=== PATIENT | female | born 1995 | race African-American/Black ===

== ENCOUNTER 2022-04-17 13:00 | Emergency (ER) | payer MEDICAID, SELFPAY ==
[2022-04-17 13:01] VITALS: BP 121/101; PULSE 80; RESP 18; TEMP 36.9; O2SAT 100; BMI 21.4
--- NOTE | 2022-04-17 13:08 | XR_ITS ---
FINAL REPORT CLINICAL HISTORY: PAIN in back, and hurts to take in a deep breath FINDINGS: Two views of the chest were obtained. The heart size and pulmonary vascularity are within normal limits. The mediastinum is normal. No acute pulmonary abnormality is identified. There is no pneumothorax. The bony thorax is intact. IMPRESSION: No active cardiopulmonary disease. Reviewed, Interpreted and Dictated by Salinas Tapia III, MD Transcribed by Gelacio Murillo Authenticated and [facility]
--- NOTE | 2022-04-17 13:24 | HMH.EDGENADL ---
Discharge Plan Disposition Patient Disposition: Home, Self-Care Condition: Good Prescriptions Prescriptions: New ibuprofen 600 mg tablet 600 mg PO Q6H PRN (Reason: moderate pain ) Qty: 20 0RF No Action prenat.vits,tracey,asc-csxw-ezftm tablet 1 tab PO QHS Qty: 30 3RF ferrous sulfate 325 mg (65 mg iron) tablet,delayed release (DR/EC) 325 mg PO DAILY Qty: 30 8RF Rx Instructions: do not break, crush, or chew tablet(s) Activity Restrictions/Add. Instructions Additional Instructions/Restrictions: Ibuprofen for pain. Heating pad 20 minutes 4 times a day. Follow-up with primary care provider next week if not improved. Clinical Impressions Clinical Impression: Musculoskeletal chest pain Discharge ED Provider: Rafat Paul General Adult HPI General Chief complaint: Back Pain/Injury Stated complaint: left flank pain Time Seen by Provider: 04/17/22 13:24 Mode of Arrival: EMS Source of Information: Patient Limitations: No Limitations Description of Symptoms (Recalled from ER Triage Doc. by RN): PT TO ED VIA EMS FOR LEFT SIDED BACK PAIN. INCREASED PAIN WITH COUGHING OR DEEP BREATHING. NO INJURY. DENIES CHEST PAIN OR SOA History of Present Illness HPI narrative: Brought in by ambulance. Complains of left sided thoracic pain laterally and posteriorly that started yesterday while walking, trouble breathing. Pain hurts when she breathes, coughs, or yawns and hurts to touch. No injury or unusual activity. States it is hard to get a deep breath because of the pain. No recent cough or fever. No leg pain or swelling. No previous similar pain. No rash. No hemoptysis. No recent travel, hospitalizations, or surgeries. She took Tylenol for the pain prior to arrival. She is a smoker. Occasionally drinks alcohol. No drug use. She is on iron and control pills. Related Data Previous Rx's Medication Instructions Recorded ferrous sulfate 325 mg (65 mg 325 mg PO DAILY #30 tabs 10/21/17 iron) tablet,delayed release prenat.vits,tracey,wdp-vleh-whxvu 1 tab PO QHS #30 tabs 10/21/17 ibuprofen 600 mg tablet 600 mg PO Q6H PRN moderate pain 04/17/22 #20 tabs Allergies Allergy/AdvReac Type Severity Reaction Status Date / Time mushroom [MUSHROOM] Allergy Unknown SWELLING Verified 11/10/17 13:48 onion [ONION] Allergy Unknown Verified 11/10/17 13:48 [facility] Medical History (Updated 04/17/22 @ 14:52 by Rafat Paul MD) No significant past medical history Surgical History (Updated 04/17/22 @ 13:11 by Chelle Lockett RN) No significant past surgical history Family History (Updated 04/17/22 @ 13:11 by Chelle Lockett RN) Other No significant family history Social History (Updated 04/17/22 @ 13:12 by Chelle Lockett RN) Smoking Status: Current every day smoker tobacco type: cigarettes packs per day: 1 alcohol intake: current substance use type: denies use current occupational status: employed Travel in the last 8 weeks: None ROS Obtained: Yes Systems reviewed as appropriate & no additional complaints except as documented Constitutional Constitutional: Denies fever(s) Cardiovascular Cardiovascular: Reports chest pain, Reports dyspnea and Denies edema Respiratory Respiratory: Denies cough, Reports dyspnea, Denies hemoptysis, Reports pain on inspiration and Reports pain with cough Gastrointestinal Gastrointestingal: Denies abdominal pain, nausea or vomiting Integumentary/Breasts Skin/Breast: Denies rash Physical Exam General General appearance: alert and in no apparent distress Head Head exam: atraumatic and normocephalic Eye Eye exam: Present normal appearance and EOMI ENT ENT exam: Present mucous membranes moist Neck Neck exam: Present normal inspection and trachea midline Chest Chest inspection: Present normal inspection, symmetric chest wall rise and tenderness; Absent rash Respiratory Respiratory exam: Present normal lung sounds bilaterally; Ab
[2022-04-17 13:30] VITALS: BP 124/81; PULSE 69; O2SAT 100
[2022-04-17 14:00] VITALS: PULSE 67; O2SAT 100
--- NOTE | 2022-04-17 14:10 | ECG_ITS ---
APPROVED REPORT Exam: Resting ECG HR:56 bpm ECG Measurements Heart Rate 56 AXES NV 156 P 46 QRSd 98 QRS 54 QT 429 T 48 QTc 421 Conclusion SINUS BRADYCARDIA WITH SINUS ARRHYTHMIA BORDERLINE ECG UNCONFIRMED REPORT Electronically signed by : Randy Lin MD 04/18/2022 16:26:15
[2022-04-17 14:16] LABS: Basophils % 0.5 % (0.1-2.0); Eosinophils % 0.8 % (0.1-12.0); Hematocrit 37.8 % (37.0-47.0); Hemoglobin 11.9 g/dL (12.2-16.2); Lymphocytes # 1.4 K/mm3 (0.7-4.5); Lymphocytes % 23.4 % (10-50); Mean Corpuscular HGB Conc 31.5 g/dL (31.8-35.4); Mean Corpuscular Hemoglobin 27.5 pg (27.0-31.2); Mean Corpuscular Volume 87.3 fl (81-99); Mean Platelet Volume 7.6 fl (7.4-10.4); Monocytes # 0.4 K/mm3 (0.1-1.0); Monocytes % 6.4 % (1.7-9.3); Neutrophils % 68.9 % (37.0-80.0); Platelet Count 208 K/mm3 (142-424); Red Blood Count 4.32 M/mm3 (4.20-5.40); Red Cell Distribution Width 13.5 % (11.5-17.5); White Blood Count 5.8 K/mm3 (4.8-10.8)
[2022-04-17 14:20] LABS: Anion Gap 7.8 mEq/L (5-15); Blood Urea Nitrogen 9 mg/dl (7-17); Carbon Dioxide 27 mmol/L (22.0-30.0); Chloride 105 mmol/L (98-107); Creatinine Clearance Estimated 107 mL/min (50-200); Estimated Glomerular Filt Rate 100 ml/min (>60); GFR (African American) 121 ML/MIN (>60); Glucose 93 mg/dl (74-100); Potassium 3.8 mmoL/L (3.5-5.1); Sodium 136 mmol/L (136-145)
[2022-04-17 14:24] LABS: D-Dimer 0.42 ug/mL (0.0-0.5)
[2022-04-17 14:30] VITALS: BP 121/78; PULSE 61; RESP 16; O2SAT 100
[2022-04-17 14:38] LABS: Troponin I < 0.01 ng/ml (0.00-0.034)
[2022-04-17 15:01] VITALS: BP 121/78; PULSE 61; RESP 16; TEMP 36.9; O2SAT 100
== END 2022-04-17 15:01 | disposition home or self-care (01) ==
PROVIDERS: Emergency Provider Emergency Medicine
DX: R10.32 Left lower quadrant pain; M54.6 Pain in thoracic spine; R00.1 Bradycardia, unspecified; R05.9 Cough, unspecified; F17.210 Nicotine dependence, cigarettes, uncomplicated; Z79.1 Long term (current) use of non-steroidal anti-inflammatories (NSAID); Z79.899 Other long term (current) drug therapy; Z91.018 Allergy to other foods
CPT/HCPCS: 71046; 80048; 84484; 85025; 85378; 93005; 99285

== ENCOUNTER 2023-09-22 08:04 | Emergency (ER) | payer MEDICAID, SELFPAY ==
[2023-09-22 08:28] VITALS: BP 149/85; PULSE 86; RESP 18; TEMP 36.9; O2SAT 98; BMI 23.9
--- NOTE | 2023-09-22 08:31 | EXP.UTC ---
Discharge Plan Disposition Patient Disposition: Home, Self-Care Condition: Good Prescriptions Prescriptions: New ondansetron 4 mg tablet,disintegrating 4 mg PO Q8H PRN (Reason: nausea and vomiting) Qty: 10 0RF amoxicillin-pot clavulanate 875-125 mg Tablet 1 tab PO Q12H Qty: 20 0RF No Action prenat.vits,tracey,sqo-cpco-tfpmm tablet 1 tab PO QHS Qty: 30 3RF ferrous sulfate 325 mg (65 mg iron) tablet,delayed release (DR/EC) 325 mg PO DAILY Qty: 30 8RF Rx Instructions: do not break, crush, or chew tablet(s) ibuprofen 600 mg tablet 600 mg PO Q6H PRN (Reason: moderate pain ) Qty: 20 0RF Referrals Follow up/Referrals: Provider,Referral, MD [Primary Care Provider] - See instructions Activity Restrictions/Add. Instructions Additional Instructions/Restrictions: Keep appointment with Dentist next week as scheduled Rinse mouth with warm salt water Take medication as prescribed Follow up as directed Over the counter Motrin and/or Tylenol for pain and fever Clinical Impressions Clinical Impression: Dental abscess Stand Alone Forms Stand Alone Forms: Work/School Release Instructions Patient Instructions: DI for Tooth Abscess, Tooth Abscess Discharge ED Provider: Yeni Anne [facility] [place] H[place] General Stated complaint: Vomiting, metallic taste, fever Mode of Arrival: Ambulatory Source of Information: Patient Limitations: No Limitations Time Seen by Provider: 09/22/23 08:31 Description of Symptoms (Recalled from Triage Doc. by RN): Patient reports abcess tooth on the top right causing nausea and vomiting x 2 days. HEENT Symptoms (Recalled from RN notes): No Resp Symptoms (Recalled from RN notes): No Skin Symptoms (Recalled from RN notes): No MS Symptoms (Recalled from RN notes): No Functional Status (Recalled from RN notes): wnl History of Present Illness Provider Complaint: Patient states that she has several bad teeth on top and they have been hurting and now she is starting to have some swelling in her gums and makes her have a bad taste in her mouth and makes her sick at her stomach and she will vomit States that she made appointment next week with the dentist but they told her she may need antibiotics so she came in today to get checked Related Data Previous Rx's Medication Instructions Recorded ferrous sulfate 325 mg (65 mg 325 mg PO DAILY #30 tabs 10/21/17 iron) tablet,delayed release prenat.vits,tracey,rqv-cwqr-xfnao 1 tab PO QHS #30 tabs 10/21/17 ibuprofen 600 mg tablet 600 mg PO Q6H PRN moderate pain 04/17/22 #20 tabs amoxicillin 875 mg-potassium 1 tab PO Q12H #20 tabs 09/22/23 clavulanate 125 mg tablet ondansetron 4 mg disintegrating 4 mg PO Q8H PRN nausea and 09/22/23 tablet vomiting #10 tabs Allergies Allergy/AdvReac Type Severity Reaction Status Date / Time mushroom [MUSHROOM] Allergy Unknown SWELLING Verified 11/10/17 13:48 onion [ONION] Allergy Unknown Verified 11/10/17 13:48 Worker's Comp Is this a Worker's Comp case?: No [facility] Disclaimer: The information contained in this section may have been updated after the patient was seen, as this information can be updated by other users. Medical History (Updated 09/22/23 @ 08:37 by Yeni Anne APRN) No significant past medical history Surgical History (Updated 04/17/22 @ 13:11 by Chelle Lockett RN) No significant past surgical history Family History (Updated 04/17/22 @ 13:11 by Chelle Lockett RN) Other No significant family history Social History (Updated 04/17/22 @ 13:12 by Chelle Lockett RN) Smoking Status: Current every day smoker tobacco type: cigarettes packs per day: 1 alcohol intake: current substance use type: denies use current occupational status: employed Travel in the last 8 weeks: None ROS Obtained: Yes All systems reviewed & no additional complaints except as documented and Yes Systems reviewed as appropriate & no additional complaints except as documented Constitutional Constitutional: Reports system reviewed and no additional complaints, except as documented and Reports as per HPI ENT Ears, Nose, Mouth, and Throat: Reports system reviewed and no additional complaints, except as documented, Reports as per HPI and Reports dental pain Cardiovascular Cardiovascular: Reports system reviewed and no additional complaints, except as documented and Reports as per HPI Respiratory Respiratory: Reports system reviewed and no additional complaints, except as documented and Reports as per HPI Gastrointestinal Gastrointestingal: Reports system reviewed and no additional complaints, except as documented, as per HPI, nausea and vomiting Genitourinary Female Genitourinary: Reports system reviewed and no additional complaints, except as documented and Reports as per HPI Physical Exam General General appearance: alert and in no apparent distress ENT ENT exam: Present mucous membranes moist Expanded ENT Exam Teeth exam: Present dental caries, fractured tooth #, gingival swelling and other (multiple broken and decaying teeth noted on right upper gumline) Respiratory Respiratory exam: Present normal lung sounds bilaterally; Absent respiratory distress or wheezes Cardiovascular Cardiovascular exam: Present regular rate, normal rhythm and normal heart sounds Neurological Exam Neurological exam: Present alert, oriented X3 and normal gait Medical Decision Making Jabier Inquiry Pt receiving controlled substance: No Jabier was queried for this patient: No Vital Signs: 09/22/23 08:28 Temperature 98.4 F Temperature Source Oral Pulse Rate [Radial] 86 Respiratory Rate 18 Blood Pressure [Right Arm] 149/85 H Blood Pressure Mean [Right Arm] 106 Blood Pressure Source [Right Arm] Automatic Cuff Blood Pressure Position [Right Arm] Sitting 02 Sat by Pulse Oximetry 98 Oxygen Delivery Method Room Air Medical Decision Narrative: Patient states that she has the mirana denies
[2023-09-22 08:45] VITALS: BP 149/85; PULSE 86; RESP 18; TEMP 36.9; O2SAT 98
== END 2023-09-22 08:46 | disposition home or self-care (01) ==
PROVIDERS: Emergency Provider Nurse Practitioner
DX: K04.7 Periapical abscess without sinus (principal); R11.10 Vomiting, unspecified; F17.210 Nicotine dependence, cigarettes, uncomplicated
CPT/HCPCS: 99204; 99212; G0463

== ENCOUNTER 2024-02-09 09:16 | Outpatient (CLI) | payer MEDICAID, SELFPAY ==
[2024-02-09 18:13] LABS: Basophils % 0.2 % (0.1-2.0); Eosinophils # 0.1 K/mm3 (0.0-0.4); Eosinophils % 2.1 % (0.1-12.0); Hematocrit 34.8 % (37.0-47.0); Hemoglobin 10.7 g/dL (12.2-16.2); Lymphocytes # 2.7 K/mm3 (0.7-4.5); Lymphocytes % 67.2 % (10-50); Mean Corpuscular HGB Conc 30.9 g/dL (31.8-35.4); Mean Corpuscular Hemoglobin 24.2 pg (27.0-31.2); Mean Corpuscular Volume 78.4 fl (81-99); Mean Platelet Volume 8.1 fl (7.4-10.4); Monocytes # 0.3 K/mm3 (0.1-1.0); Monocytes % 6.3 % (1.7-9.3); Neutrophils % 24.2 % (37.0-80.0); Platelet Count 199 K/mm3 (142-424); Red Blood Count 4.43 M/mm3 (4.20-5.40); Red Cell Distribution Width 14.8 % (11.5-17.5)
[2024-02-09 18:23] LABS: MANUAL DIFFERENTIAL MANUAL DIFFERENTIAL (MANUAL DIFF)
[2024-02-09 18:24] LABS: Chloride 106 mmol/L (98-107); Sodium 135 mmol/L (136-145)
[2024-02-09 18:26] LABS: Alanine Aminotransferase 33 U/L (12-78); Blood Urea Nitrogen 11 mg/dl (7-17); Estimated Glomerular Filt Rate 187 ml/min (>60); GFR (African American) 227 ML/MIN (>60)
[2024-02-09 18:27] LABS: Albumin Level 3.2 g/dl (3.5-5.0); Albumin/Globulin Ratio 1.5 (1.1-1.8); Alkaline Phosphatase 70 U/L (38-126); Aspartate Amino Transferase 30 U/L (14-36); Bilirubin,Total 0.7 mg/dl (0.2-1.3); Calcium 9.3 mg/dl (8.4-10.2); Carbon Dioxide 26 mmol/L (22.0-30.0); Chol/HDL Ratio 2.6 (1-3.5); Cholesterol 105 mg/dl (140-200); Globulin 2.2 g/dL (1.3-3.2); Glucose 92 mg/dl (74-100); HDL Cholesterol 41 mg/dl (40-60); Total Protein,Serum 5.4 g/dl (6.3-8.2); Triglycerides 67 mg/dl (30-150); VLDL Cholesterol 13 mg/dL (0-40)
[2024-02-09 18:38] LABS: Direct LDL Cholesterol 55.38 mg/dL (100-129)
[2024-02-09 18:55] LABS: Lymphocytes % 71 % (10-50); Monocytes % 6 % (2-9); Neutrophils % 20 % (42-76); Total Cells Counted 100
[2024-02-09 18:56] LABS: Anisocytosis 1+; Hypochromasia 2+; Microcytosis 1+; Platelet Estimate Normal
[2024-02-09 18:58] LABS: Thyroid Stimulating Hormone < 0.02 uIU/mL (0.465-4.68)
[2024-02-09 19:08] LABS: T4 (Thyroxine) > 24.9 ug/dl (5.53-11.0)
== END 2024-02-09 23:59 | disposition home or self-care (01) ==
LOC: LAB.DROPOF 02-10 09:17
PROVIDERS: PCP Nurse Practitioner Acute Care; Visit Provider Nurse Practitioner Acute Care
DX: Z13.220 Encounter for screening for lipoid disorders (principal); Z13.1 Encounter for screening for diabetes mellitus; R53.83 Other fatigue
CPT/HCPCS: 80053; 80061; 83036; 84436; 84443; 85007; 85025; 85027

== ENCOUNTER 2024-02-15 09:07 | Outpatient (CLI) | payer MEDICAID, SELFPAY ==
[2024-02-15 18:02] LABS: Basophils % 0.5 % (0.1-2.0); Eosinophils # 0.1 K/mm3 (0.0-0.4); Eosinophils % 1.3 % (0.1-12.0); Hematocrit 36.3 % (37.0-47.0); Hemoglobin 11.4 g/dL (12.2-16.2); Mean Corpuscular HGB Conc 31.4 g/dL (31.8-35.4); Mean Corpuscular Hemoglobin 24.4 pg (27.0-31.2); Mean Corpuscular Volume 77.8 fl (81-99); Mean Platelet Volume 7.2 fl (7.4-10.4); Monocytes # 0.2 K/mm3 (0.1-1.0); Monocytes % 6.4 % (1.7-9.3); Neutrophils # 1.5 K/mm3 (1.8-7.8); Neutrophils % 38.9 % (37.0-80.0); Platelet Count 204 K/mm3 (142-424); Red Blood Count 4.67 M/mm3 (4.20-5.40); White Blood Count 3.8 K/mm3 (4.8-10.8)
[2024-02-15 18:03] LABS: MANUAL DIFFERENTIAL MANUAL DIFFERENTIAL (MANUAL DIFF)
[2024-02-15 18:59] LABS: Triiodothryronine (T3) Uptake 63 % (23.5-40.5)
[2024-02-15 19:27] LABS: Free Thyroxine Index 15.7 ug/dL (5.93-13.13)
[2024-02-15 19:28] LABS: Anisocytosis 1+; Eosinophils % 1 % (0-3); Hypochromasia 2+; Lymphocytes % 63 % (10-50); Microcytosis 1+; Monocytes % 6 % (2-9); Neutrophils % 30 % (42-76); Platelet Estimate Normal; Total Cells Counted 100
[2024-02-15 19:37] LABS: Vitamin B12 532 pg/mL (239-931)
[2024-02-15 19:53] LABS: 25-OH Vitamin D, Total 23.3 ng/mL (30-100)
[2024-02-16 11:19] LABS: T4 (Thyroxine) > 24.9 ug/dl (5.53-11.0)
[2024-02-16 11:27] LABS: Thyroid Stimulating Hormone < 0.02 uIU/mL (0.465-4.68)
[2024-02-17 12:12] LABS: Thyroid Peroxidase Antibodies 321 IU/mL (0-34)
[2024-02-17 17:43] LABS: Peripheral Smear Review Scanned Result
[2024-02-19 09:31] LABS: Thyroid Stimulating Immunoglob 8.01 IU/L (0.00-0.55)
== END 2024-02-15 23:59 | disposition home or self-care (01) ==
LOC: LAB.DROPOF 02-16 09:08
PROVIDERS: PCP Student in an Organized Health Care Education/Training Program; Visit Provider Student in an Organized Health Care Education/Training Program
DX: D64.9 Anemia, unspecified (principal); E05.90 Thyrotoxicosis, unspecified without thyrotoxic crisis or storm
CPT/HCPCS: 82306; 82607; 82728; 82746; 83540; 83550; 83970; 84436; 84443; 84445; 84479; 85007; 85025; 85027; 86376

== ENCOUNTER 2024-02-18 21:27 | Emergency (ER) | payer MEDICAID, SELFPAY ==
[2024-02-18 21:28] VITALS: BP 130/72; PULSE 109; RESP 16; TEMP 36.6; O2SAT 100; BMI 21.4
--- NOTE | 2024-02-18 22:17 | XR_ITS ---
PROCEDURE INFORMATION: Exam: XR Left Ankle Exam date and time: 02/18/2024 10:17 PM Age: 28 years old Clinical indication: Swelling, leg or foot; Additional info: Left ankle pain and swelling TECHNIQUE: Imaging protocol: Radiologic exam of the left ankle. Views: 3 or more views. COMPARISON: No relevant prior studies available. FINDINGS: Bones/joints: No acute fracture. Soft tissues: Moderate bimalleolar soft tissue swelling. IMPRESSION: 1. No evidence for acute fracture. 2. Moderate bimalleolar soft tissue swelling.
--- NOTE | 2024-02-18 23:01 | HMH.EDGENADL ---
Discharge Plan Disposition Patient Disposition: Home, Self-Care Chief Complaint: Extremity Problem,Nontraumatic Prescriptions Prescriptions: No Action Mirena 21 mcg/24 hours (8 yrs) 52 mg intrauterine device intrauterine ofloxacin 0.3 % drops 10 drp otic (ear) DAILY 7 Days Qty: 10 0RF atenolol 25 mg tablet 25 mg PO DAILY Qty: 90 3RF lamotrigine [Lamictal] 25 mg tablet 25 mg PO DAILY Qty: 30 0RF Rx Instructions: If you develop a rash, stop the medication and call the clinic. fluticasone propionate [Flonase Allergy Relief] 50 mcg/actuation spray,suspension 1 spray intranasal BID Qty: 16 2RF Rx Instructions: administer into each nostril loratadine [Claritin] 10 mg tablet 10 mg PO DAILY Qty: 30 2RF Referrals Follow up/Referrals: Provider,Referral, MD [Primary Care Provider] - See instructions Activity Restrictions/Add. Instructions Additional Instructions/Restrictions: Call your family doctor to establish care for this visit to the emergency department and schedule follow-up within 48 hours to ensure improvement. If you have any worsening of your condition or any other concerning signs or symptoms, return to the emergency department or your primary care doctor for further evaluation. Clinical Impressions Clinical Impression: Left leg swelling Discharge ED Provider: Jd Christianson General Adult HPI General Chief complaint: Extremity Problem,Nontraumatic Stated complaint: bilateral ankle swelling/pain Time Seen by Provider: 02/18/24 21:45 Mode of Arrival: Ambulatory Source of Information: Patient Limitations: No Limitations Description of Symptoms (Recalled from ER Triage Doc. by RN): patient ambulatory to ED with complaints of bilateral leg swelling for several weeks, but increased pain today with ambulation. +1 pitting edema present. History of Present Illness HPI narrative: Please note that above description of symptoms, in this electronic medical record under categorization of recalled from ER triage doctor by RN are reflective of an initial nursing assessment, however, is not reflective of my full history and physical exam that was personally taken and clarified. Consequentially, this preceding description of symptoms, which may include the patient's categorized chief complaint in the EMR, do not reflect my personal clinical impression, and the ultimate description of history of present illness and patient stated complaints should be deferred to this section of the note. Unless stated otherwise or congruent with this section of the note, additional signs, symptoms, or incongruence should be interpreted as inaccurate with my clinical impression. Related Data Home Medications Medication Instructions Recorded Confirmed levonorgestrel 21 mcg/24 hr (up to intrauterine 10/21/23 02/15/24 8 years) 52 mg intrauterine device (Mirena) Previous Rx's Medication Instructions Recorded fluticasone propionate 50 1 spray intranasal BID #16 grams 02/09/24 mcg/actuation nasal spray,suspension (Flonase Allergy Relief) lamotrigine 25 mg tablet (Lamictal) 25 mg PO DAILY #30 tabs 02/09/24 loratadine 10 mg tablet (Claritin) 10 mg PO DAILY #30 tabs 02/09/24 atenolol 25 mg tablet 25 mg PO DAILY #90 tabs 02/15/24 ofloxacin 0.3 % ear drops 10 drp otic (ear) DAILY 7 days #10 02/15/24 mL Allergies Allergy/AdvReac Type Severity Reaction Status Date / Time mushroom [MUSHROOM] Allergy Unknown SWELLING Verified 02/15/24 15:11 onion [ONION] Allergy Unknown Verified 02/15/24 15:11 [facility] Disclaimer: The information contained in this section may have been updated after the patient was seen, as this information can be updated by other users. Medical History Anemia Hyperthyroidism Dental abscess IUD (intrauterine device) in place Surgical History No significant past surgical history Family History Other No significant family history Social History Smoking Status: Current every day smoker tobacco type: cigarettes packs per day: 1 alcohol intake: current alcohol intake frequency: holidays/special occasions only substance use type: denies use current occupational status: employed Travel in the last 8 weeks: None housing: apartment lives independently: Yes marital status: single detention: No Hx Recent Travel: No ROS Obtained: Yes All systems reviewed & no additional complaints except as documented Physical Exam General General appearance: alert and in no apparent distress Head Head exam: atraumatic and normocephalic Eye Eye exam: Present normal appearance, PERRL and EOMI ENT ENT exam: Present mucous membranes moist Neck Neck exam: Present normal inspection, full ROM and trachea midline Respiratory Respiratory exam: Absent respiratory distress, wheezes, stridor, accessory muscle use or prolonged expiratory phase Cardiovascular Cardiovascular exam: Present normal rhythm Abdominal Exam Abdominal exam: Present soft; Absent distention, tenderness, guarding, rebound or rigidity Extremities Exam Extremities exam: Absent edema Neurological Exam Neurological exam: Present alert, oriented X3, CN II-XII intact and normal gait; Absent motor sensory deficit Skin Skin exam: Present warm and dry; Absent diaphoresis or erythema Medical Decision Making Medical Records Medical records reviewed: Yes I reviewed the patient's medical records. Jabier Inquiry Pt receiving controlled substance: No Jabier was queried for this patient: No Vital Signs: 02/18/24 21:28 Temperature 97.8 F Temperature Source Oral Pulse Rate [Right] 109 H Respiratory Rate 16 Blood Pressure [Right Arm] 130/72 Blood Pressure Mean [Right Arm] 91 Blood Pressure Source [Right Arm] Automatic Cuff Blood Pressure Position [Right Arm] Supine 02 Sat by Pulse Oximetry 100 Oxygen Delivery Method Room Air Orders (Tests/Meds): ORDERS Category Date Time Status Ankle XR - Left minimum 3 Views [XR ankle LT min 3V] Exams 02/18/24 22:17 Taken Stat POCUS Point of Care (ER Only) Stat Exams 02/18/24 22:17 Ordered Medical Decision Narrative: 28-year-old female no relevant medical history presenting with left lower extremity swelling. She states that it has been swelling for the past couple of days, got worse today. Usually hurts in both, hurting in the left most so. She is on her feet all day for work. No redness, severe tenderness, neurologic deficits. Has not injured it. Took Tylenol and that seemed to help with some of the discomfort due to swelling. History was obtained via conversation with patient. On arrival, patient hemodynamically stable, alert, oriented x4, appropriate, GCS 15, moving all extremities spontaneously, pupils equal and reactive to light. Full physical exam performed and significant for left lower extremity is tender at medial malleolus, but no outward signs of injury, redness, deformity, or other abnormality. Pulses are equal and symmetric in lower extremities. Sensation intact. Patient ambulatory without issue. Differential includes sprain, strain, fracture, dislocation, DVT, among others. Independent rotation of x-rays demonstrates no acute bony abnormality of the left lower extremity. See radiology results for final read. [id number] bedside ultrasound without DVT in the left lower extremity. Because patient at baseline without signs or symptoms of clinical decompensation, deemed appropriate for discharge. Results were relayed to patient who voiced understanding and were agreeable to outpatient management and follow up. I discussed my clinical impression with patient and answered all questions. At this time, the evidence for any other entities in the differential is insufficient to warrant any further testing or ED observation. This was explained as well. Advisory was given that persistent or worsening symptoms require further evaluation. I confirmed the understanding of this discussion. Straight Line [employer] Setter disclaimer Much of this encounter note is an electronic whistle punk spoken language to printed text. Electronic whistle punk of the spoken language may permit errors. Although I have reviewed the note, some errors may still exist. Procedures Limited Ultrasound Indication:: Limited DVT ultrasound Indication: Limited compression ultrasonography of the left lower extremity was performed to evaluate for non-compressibility of the deep veins in the patient. The ultrasound was performed with the following indications, as noted in the H&P: Subjective left lower extremity swelling Identified structures: Left common femoral vein, femoral vein, popliteal vein were examined. Findings: Lower Extremity: Left CFV: Good compressibility Left FV compressibility Left Popliteal vein: Good compressibility at popliteal vein and into the calf veins Impression: Negative DVT ultrasound of the left lower extremity Images were saved to permanent archive The study was technically adequate CPT: 61388-45-QH 85569-27-XP 73496-18 (complete bilateral study) This study was performed by me, and I personally interpreted all images/videos. Based on my clinical judgement, these images were adequate and did not necessitate further imaging. Critical Care Critical Care Time Critical Care Time: No
[2024-02-18 23:07] VITALS: BP 125/69; PULSE 100; RESP 16; TEMP 36.6; O2SAT 98
== END 2024-02-18 23:08 | disposition home or self-care (01) ==
PROVIDERS: Emergency Provider Emergency Medicine
DX: R22.42 Localized swelling, mass and lump, left lower limb (principal); F17.210 Nicotine dependence, cigarettes, uncomplicated
CPT/HCPCS: 73610; 99284

== ENCOUNTER 2024-02-22 15:05 | Outpatient (CLI) | payer MEDICAID, SELFPAY ==
--- NOTE | 2024-02-22 15:05 | US_ITS ---
FINAL REPORT CLINICAL HISTORY: goiter, hyperthyroidism FINDINGS: Limited sonographic images of the thyroid were obtained. The thyroid is enlarged, heterogeneous and hypervascular consistent with thyroiditis or goiter. No mass or nodule is identified. The isthmus measures 4 mm. IMPRESSION: Thyroiditis versus goiter. Reviewed, Interpreted and Dictated by Salinas Tapia III, MD Transcribed by Jadyn Faith Authenticated and . [facility]
== END 2024-02-22 23:59 | disposition home or self-care (01) ==
LOC: RAD 15:05
PROVIDERS: PCP Student in an Organized Health Care Education/Training Program; Visit Provider Student in an Organized Health Care Education/Training Program
DX: E04.9 Nontoxic goiter, unspecified (principal); E05.90 Thyrotoxicosis, unspecified without thyrotoxic crisis or storm
CPT/HCPCS: 76536

== ENCOUNTER 2024-03-07 12:05 | Outpatient (CLI) | payer MEDICAID, SELFPAY ==
[2024-03-07 18:27] LABS: Basophils % 0.3 % (0.1-2.0); Eosinophils % 0.9 % (0.1-12.0); Hematocrit 37.7 % (37.0-47.0); Hemoglobin 11.6 g/dL (12.2-16.2); Lymphocytes % 53.7 % (10-50); Mean Corpuscular HGB Conc 30.7 g/dL (31.8-35.4); Mean Corpuscular Hemoglobin 24.3 pg (27.0-31.2); Mean Corpuscular Volume 79.1 fl (81-99); Mean Platelet Volume 7.5 fl (7.4-10.4); Monocytes # 0.3 K/mm3 (0.1-1.0); Monocytes % 8.3 % (1.7-9.3); Neutrophils # 1.4 K/mm3 (1.8-7.8); Neutrophils % 36.7 % (37.0-80.0); Platelet Count 203 K/mm3 (142-424); Red Blood Count 4.76 M/mm3 (4.20-5.40); Red Cell Distribution Width 15.2 % (11.5-17.5); White Blood Count 3.7 K/mm3 (4.8-10.8)
[2024-03-07 18:35] LABS: Iron 124 ug/dL (37-170)
[2024-03-07 18:37] LABS: MANUAL DIFFERENTIAL MANUAL DIFFERENTIAL (MANUAL DIFF)
[2024-03-07 18:45] LABS: Total Iron Binding Capacity 214 ug/dL (265-497)
[2024-03-07 19:12] LABS: Ferritin 239 ng/ml (6.24-137)
[2024-03-07 19:17] LABS: Eosinophils % 1 % (0-3); Hypochromasia 1+; Lymphocytes % 53 % (10-50); Microcytosis 1+; Monocytes % 7 % (2-9); Neutrophils % 38 % (42-76); Platelet Estimate Normal; Poikilocytosis 1+; Total Cells Counted 100
[2024-03-08 14:13] LABS: HIV (1&2) Antibody Rapid NONREACTIVE (NONREACTIVE)
[2024-03-09 08:53] LABS: HCV Ab Non Reactive (Non Reactive)
== END 2024-03-07 23:59 | disposition home or self-care (01) ==
LOC: LAB.DROPOF 03-08 12:05
PROVIDERS: PCP Student in an Organized Health Care Education/Training Program; Visit Provider Student in an Organized Health Care Education/Training Program
DX: Z11.59 Encounter for screening for other viral diseases (principal); D64.9 Anemia, unspecified; Z11.4 Encounter for screening for human immunodeficiency virus [HIV]
CPT/HCPCS: 86803; 86703; 82728; 83540; 83550; 85007; 85025; 85027

== ENCOUNTER 2024-06-25 12:47 | Emergency (ER) | payer MEDICAID, SELFPAY ==
[2024-06-25 12:55] VITALS: BP 124/48; PULSE 64; RESP 19; TEMP 36.8; O2SAT 100; BMI 25.0
[2024-06-25 13:09] LABS: UTC Strep Screen (Rapid) Negative (Negative)
--- NOTE | 2024-06-25 13:10 | ED_ITS ---
Discharge Plan Disposition Patient Disposition: Home, Self-Care Condition: Good Prescriptions Prescriptions: New prednisone 20 mg tablet 20 mg PO BID Qty: 10 0RF No Action propranolol 10 mg tablet 10 mg PO TID Patient Comments: TAKE 1 TABLET BY MOUTH THREE TIMES DAILY TAKE ALONG WITH PROPRANOLOL 20 MG TABS TO EQUAL 90 MG THREE TIMES DAILY. propranolol 20 mg tablet 80 mg PO TID Patient Comments: TAKE 4 TABLETS BY MOUTH THREE TIMES DAILY ALOND WITH 10 MG TABLETS TO EQUAL 90MG THREE TIMES DAILY OR TITRATED DOSE INSTRUCTED. Referrals Follow up/Referrals: Provider,Referral, MD [Primary Care Provider] - See instructions Activity Restrictions/Add. Instructions Additional Instructions/Restrictions: No sign of a bacterial infection. Likely viral. Viruses can take 7-14 days to run their course. Nasal saline and bulb syringe or nose Jesenia to remove nasal drainage to help with nasal congestion. Hard to eat, drink, sleep with nasal congestion so important to keep this cleaned out. Monitor temp. Tylenol or Motrin as needed for pain or fever Encourage fluids, water, Gatorade, Powerade, Pedialyte if /toddler/child Warm salt water gargles Warm fluids Sore throat lozenges Sleep elevated Humidifier/vaporizer Follow-up immediately for new or worsening symptoms or no noticeable improvement over the next 48-72 hours. Clinical Impressions Clinical Impression: Allergic rhinitis Instructions Patient Instructions: DI for Allergic Rhinitis Print Language Print Language: Cymro Discharge ED Provider: Edmundo ([facility] [place] Stated complaint: sore throat, ear pain Mode of Arrival: Ambulatory Source of Information: Patient Limitations: No Limitations Time Seen by Provider: 06/25/24 13:10 Description of Symptoms (Recalled from Triage Doc. by RN): PATIENT C/O SORE THROAT, NASAL CONGESTION, AND RINGING IN EAR X 2 DAYS HEENT Symptoms (Recalled from RN notes): Yes Resp Symptoms (Recalled from RN notes): No Skin Symptoms (Recalled from RN notes): No MS Symptoms (Recalled from RN notes): No Functional Status (Recalled from RN notes): WNL History of Present Illness Provider Complaint: 28-year-old female presents with complaints of sore throat, nasal congestion, and ringing in the ear for 2 days Related Data Home Medications ?Medication ?Instructions ?Recorded ?Confirmed propranolol 10 mg tablet 10 mg PO TID 06/25/24 06/25/24 propranolol 20 mg tablet 80 mg PO TID 06/25/24 06/25/24 Previous Rx's ?Medication ?Instructions ?Recorded prednisone 20 mg tablet 20 mg PO BID #10 tabs 06/25/24 Allergies Allergy/AdvReac Type Severity Reaction Status Date / Time mushroom [MUSHROOM] Allergy Unknown SWELLING Verified 03/07/24 13:19 onion [ONION] Allergy Unknown Verified 03/07/24 13:19 Worker's Comp Is this a Worker's Comp case?: No [facility] Disclaimer: The information contained in this section may have been updated after the patient was seen, as this information can be updated by other users. Medical History , [employer]) Anemia Hyperthyroidism Dental abscess IUD (intrauterine device) in place Surgical History , [employer]) No significant past surgical history Family History , [employer]) No significant family history Social History , [employer]) Smoking Status: Current every day smoker tobacco type: cigarettes packs per day: 1 alcohol intake: current alcohol intake frequency: holidays/special occasions only substance use type: denies use current occupational status: employed Travel in the last 8 weeks: None housing: apartment lives independently: Yes marital status: single longterm: No Hx Recent Travel: No ROS Obtained: Yes Systems reviewed as appropriate & no additional complaints except as documented ENT Ears, Nose, Mouth, and Throat: Reports system reviewed and no additional complaints, except as documented, Reports as per HPI, Reports otalgia, Reports nasal congestion, Reports nasal discharge, Reports post nasal drip and Reports sore throat Physical Exam General General appearance: alert and in no apparent distress Eye Eye exam: Present normal appearance ENT ENT exam: Present mucous membranes moist Expanded ENT Exam TM/Canal exam: Bilateral TM: effusion Mouth exam: Present other (Postnasal drainage) Respiratory Respiratory exam: Present normal lung sounds bilaterally Cardiovascular Cardiovascular exam: Present regular rate and normal rhythm Neurological Exam Neurological exam: Present alert and oriented X3 Skin Skin exam: Present warm and intact Medical Decision Making Medical Records Medical records reviewed: Yes I reviewed the patient's medical records. Screening: Per USPSTF and CDC recommendations, given the prevalence of disease in our region, it is our hospital?s policy to screen for HIV and viral Hepatitis for all patients aged 18 and over and those with ongoing risk factors. Jabier Inquiry Pt receiving controlled substance: No Jabier was queried for this patient: No Vital Signs: 06/25/24 12:55 Temperature 98.2 F Temperature Source Oral Pulse Rate [Left Brachial] 64 Respiratory Rate 19 Blood Pressure [Left Arm] 124/48 L Blood Pressure Mean [Left Arm] 73 Blood Pressure Source [Left Arm] Automatic Cuff Blood Pressure Position [Left Arm] Sitting 02 Sat by Pulse Oximetry 100 Oxygen Delivery Method Room Air Lab Data Lab results reviewed: Yes I reviewed the patient's lab results. Lab Results 06/25/24 12:49: Strep Scn Rapid Clinic Negative Orders (Tests/Meds): ORDERS Category Date Time Status Strep Screen Confirmation Stat Micro 06/25/24 12:49 Received
[2024-06-25 13:18] VITALS: BP 124/48; PULSE 64; RESP 19; TEMP 36.8; O2SAT 100
== END 2024-06-25 13:20 | disposition home or self-care (01) ==
PROVIDERS: Emergency Provider Nurse Practitioner Family
DX: J30.9 Allergic rhinitis, unspecified (principal)
CPT/HCPCS: 87880; 99213; G0381

== ENCOUNTER 2024-12-12 10:14 | Outpatient (CLI) | payer OTHER, SELFPAY ==
[2024-12-12 10:36] LABS: Basophils % 0.7 % (0.1-2.0); Eosinophils # 0.1 Kmm3 (0.0-0.4); Eosinophils % 1.5 % (0.1-12.0); Hematocrit 40.6 % (37.0-47.0); Hemoglobin 13.4 g/dL (12.2-16.2); Lymphocytes % 74.2 % (10-50); Mean Corpuscular Hemoglobin 29.1 pg (27.0-31.2); Mean Corpuscular Volume 88.1 fl (81-99); Mean Platelet Volume 9.6 fl (7.4-10.4); Monocytes # 0.2 K/mm3 (0.1-1.0); Monocytes % 4.3 % (1.7-9.3); Neutrophils % 19.3 % (37.0-80.0); Nucleated Red Blood Cells # 0 10^3/uL; Nucleated Red Blood Cells % 0 %; Platelet Count 194 K/mm3 (142-424); Red Blood Count 4.61 M/mm3 (4.20-5.40); Red Cell Distribution Width 14.8 % (11.5-17.5); Red Cell Distribution Width-SD 47.7 fL; White Blood Count 5.4 K/mm3 (4.8-10.8)
[2024-12-12 11:30] LABS: Alanine Aminotransferase 16 U/L (12-78); Albumin Level 4.9 g/dl (3.5-5.0); Alkaline Phosphatase 45 U/L (38-126); Anion Gap 10.2 mEq/L (5-15); Aspartate Amino Transferase 37 U/L (14-36); Blood Urea Nitrogen 15 mg/dl (7-17); Calcium 9.3 mg/dl (8.4-10.2); Carbon Dioxide 29 mmol/L (22.0-30.0); Chloride 104 mmol/L (98-107); Estimated Glomerular Filt Rate 52 ml/min (>60); GFR (African American) 63 ML/MIN (>60); Globulin 2.5 g/dL (1.3-3.2); Glucose 80 mg/dl (74-100); Potassium 4.2 mmoL/L (3.5-5.1); Sodium 139 mmol/L (136-145); Total Protein,Serum 7.4 g/dl (6.3-8.2)
[2024-12-12 11:46] LABS: Free T4 (Free Thyroxine) 0.32 ng/dl (0.78-2.19)
== END 2024-12-12 23:59 | disposition home or self-care (01) ==
PROVIDERS: Visit Provider Nurse Practitioner Acute Care
DX: F41.1 Generalized anxiety disorder (principal); F39 Unspecified mood [affective] disorder
CPT/HCPCS: 36415; 80053; 84439; 84443; 85025

== ENCOUNTER 2025-07-03 12:13 | Outpatient (CLI) | payer OTHER, SELFPAY ==
[2025-07-03 13:56] LABS: Free T4 (Free Thyroxine) < 0.07 ng/dl (0.78-2.19)
[2025-07-03 14:55] LABS: Thyroid Stimulating Hormone 175.00 uIU/mL (0.465-4.68)
== END 2025-07-03 23:59 | disposition home or self-care (01) ==
LOC: LAB 12:14
PROVIDERS: Visit Provider Student in an Organized Health Care Education/Training Program
DX: E89.0 Postprocedural hypothyroidism (principal); Z79.899 Other long term (current) drug therapy
CPT/HCPCS: 36415; 84439; 84443